=== PATIENT | male | born 1965 | race Native Hawaiian/Other Pacific Islander ===

== ENCOUNTER 2018-09-05 11:53 | Emergency (ER) | payer OTHER ==
[~2018-09-05] VITALS: Ht 172.7 cm; Wt 74.4 kg
[2018-09-05 12:02] VITALS: TEMP 98
[2018-09-05 13:50] VITALS: BP 159/83
== END 2018-09-05 14:28 | disposition short-term general hospital (02) ==
LOC: ED 11:53
DX: S62.623B Displaced fracture of middle phalanx of left middle finger, initial encounter for open fracture (principal); S62.635B Displaced fracture of distal phalanx of left ring finger, initial encounter for open fracture; S68.625A Partial traumatic transphalangeal amputation of left ring finger, initial encounter; W29.8XXA Contact with other powered hand tools and household machinery, initial encounter
CPT/HCPCS: 80320; 90471; 90715; 96374; 96375; 96376; 99284; J1170

== ENCOUNTER 2020-11-06 09:17 | Emergency (ER) | payer OTHER ==
[~2020-11-06] VITALS: Ht 172.7 cm; Wt 67.1 kg
[2020-11-06 11:08] VITALS: BP 160/67; TEMP 98.6
== END 2020-11-06 11:09 | disposition home or self-care (01) ==
LOC: ED 09:17
DX: Z48.02 Encounter for removal of sutures (principal)
CPT/HCPCS: 99282

== ENCOUNTER 2021-01-19 04:50 | Emergency (ER) | payer OTHER ==
[~2021-01-19] VITALS: Ht 172.7 cm; Wt 65.8 kg
[2021-01-19 06:25] VITALS: BP 132/83
== END 2021-01-19 06:25 | disposition home or self-care (01) ==
LOC: ED 04:50
DX: G43.909 Migraine, unspecified, not intractable, without status migrainosus (principal)
CPT/HCPCS: 96372; 99283; J1200; J1885; J2405

== ENCOUNTER 2021-04-11 07:10 | Emergency (ER) | payer OTHER ==
[~2021-04-11] VITALS: Ht 172.7 cm; Wt 65.8 kg
[2021-04-11 07:10] VITALS: TEMP 97
[2021-04-11 08:07] VITALS: BP 112/50
== END 2021-04-11 08:07 | disposition short-term general hospital (02) ==
LOC: ED 07:16
PROC: 0T9B70Z Drainage of Bladder with Drainage Device, Via Natural or Artificial Opening (ICD-10-PCS; principal; 2021-04-11)
DX: S42.402B Unspecified fracture of lower end of left humerus, initial encounter for open fracture (principal); S30.1XXA Contusion of abdominal wall, initial encounter; S71.112A Laceration without foreign body, left thigh, initial encounter; V09.00XA Pedestrian injured in nontraffic accident involving unspecified motor vehicles, initial encounter; Y92.89 Other specified places as the place of occurrence of the external cause
CPT/HCPCS: 51702; 96360; 96361; 96365; 96375; 99285; J2270; J2543; J7120